=== PATIENT | male | born 1960 | race Caucasian/White ===

== ENCOUNTER → 2016-06-14 | Outpatient (CLI) | payer MEDICARE ==
[~2016-06-14] MED LIST: ASPI325T PO; LISI5TAB PO; ZEST20TA8 PO
[2016-06-14 18:33] LABS: ALBUMIN 3.9 GM/DL (3.2-5.2); ALBUMIN/GLOBULIN RATIO 1.08 (1.00-1.93); ALKALINE PHOSPHATASE 126 U/L (45-117); ALT/SGPT 58 U/L (12-78); ANION GAP 8 MEQ/L (8-16); AST/SGOT 57 U/L (15-37); BILIRUBIN,TOTAL 0.6 MG/DL (0.2-1.0); BLOOD UREA NITROGEN 9 MG/DL (7-18); CALCIUM LEVEL 8.7 MG/DL (8.5-10.1); CARBON DIOXIDE LEVEL 27 MEQ/L (21-32); CHLORIDE LEVEL 104 MEQ/L (98-107); CHOLESTEROL LEVEL 239 MG/DL (<200); CREATININE FOR GFR 1.07 MG/DL (0.70-1.30); GLOMERULAR FILTRATION RATE > 60.0 (>56); GLUCOSE, FASTING 90 MG/DL (70-105); POTASSIUM SERUM 4.3 MEQ/L (3.5-5.1); SODIUM LEVEL 139 MEQ/L (136-145); TOTAL PROTEIN 7.5 GM/DL (6.4-8.2); TRIGLYCERIDES LEVEL 81 MG/DL (<150)
== END ==
LOC: M LAB 16:02
PROVIDERS: ATTEND Nurse Practitioner
DX: Z12.5 Encounter for screening for malignant neoplasm of prostate (principal); I10 Essential (primary) hypertension
CPT/HCPCS: 36415; 80053; 80061; 84443; G0103

== ENCOUNTER 2018-01-01 03:19 | Inpatient (IN) | payer MEDICARE ==
[2018-01-01 04:16] LABS: BASO % 0.6 % (0.0-1.0); EOS % 0.6 % (0.0-3.0); HEMATOCRIT 43.9 % (42.0-52.0); HEMOGLOBIN 15.2 g/dl (13.5-17.5); IMMATURE GRANULOCYTE % 0.2 % (0-3.0); LYMPH # 1.8 10^3/uL (1.5-4.5); MEAN CORPUSCULAR HEMOGLOBIN 35.5 pg (27.0-33.0); MEAN CORPUSCULAR HGB CONC 34.6 g/dl (32.0-36.5); MEAN CORPUSCULAR VOLUME 102.6 fl (80.0-96.0); MONO # 0.6 10^3/uL (0.0-0.8); MONO % 11.2 % (0.0-5.0); NEUTROPHILS # 2.7 10^3/uL (1.8-7.7); NEUTROPHILS % 52.4 % (36.0-66.0); PLATELET COUNT, AUTOMATED 218 10^3/uL (150-450); RED BLOOD COUNT 4.28 10^6/uL (4.30-6.10); RED CELL DISTRIBUTION WIDTH 13.4 % (11.5-14.5); WHITE BLOOD COUNT 5.2 10^3/uL (4.0-10.0)
[2018-01-01 04:21] LABS: ABG BASE EXCESS -0.6 (-2.0-2.0); ABG HCO3 22.3 MEQ/L (22.0-26.0); ABG O2 SATURATION 93.9 % (95.0-99.0); ABG PARTIAL PRESSURE CO2 32.4 mmHg (35.0-45.0); ABG PARTIAL PRESSURE O2 65.3 mmHg (75.0-100.0); ABG STANDARD HCO3 23.9 MEQ/L (22.0-26.0); ABG TOTAL CO2 23.3 MEQ/L (22.0-29.0); ABG pH (ARTERIAL) 7.456 UNITS (7.350-7.450)
[2018-01-01] MEDS: METOPROLOL 5 MG/5 ML VIAL IV ×2 (04:21→16:11)
[2018-01-01] MEDS: FLECAINIDE 50MG TABLET PO (04:25)
[2018-01-01 04:31] LABS: ANION GAP 10 MEQ/L (8-16); BLOOD UREA NITROGEN 10 MG/DL (7-18); CALCIUM LEVEL 8.9 MG/DL (8.5-10.1); CARBON DIOXIDE LEVEL 22 MEQ/L (21-32); CHLORIDE LEVEL 109 MEQ/L (98-107); CPK CREATINE PHOSPHOKINASE 162 U/L (39-308); CREATININE FOR GFR 1.19 MG/DL (0.70-1.30); ETHYL ALCOHOL (ETHANOL) 0.004 % (0.000-0.010); GLOMERULAR FILTRATION RATE > 60.0 (>56); GLUCOSE, FASTING 117 MG/DL (70-100); MB/CK RELATIVE INDEX 2.16 (< OR =4); NT-PRO BNP 8156 PG/ML (<125); POTASSIUM SERUM 4.4 MEQ/L (3.5-5.1); SODIUM LEVEL 141 MEQ/L (136-145); TROPONIN I 0.03 NG/ML (< 0.10)
[2018-01-01] MEDS: hydrALAZINE INJ 20 MG/ML VIAL IV (04:51)
[2018-01-01] MEDS: FUROSEMIDE 100 MG/10 ML VIAL (J1940) IV (04:52)
[2018-01-01] MEDS: PHENobarbital INJ 65 MG/ML VIAL (J2560) IV ×2 (05:21→05:28)
[2018-01-01] MEDS ORDERED: BISACODYL 5 MG TAB PO (05:30)
[2018-01-01] MEDS ORDERED: LORazepam 2 MG TAB PO (05:30)
[2018-01-01] MEDS ORDERED: BISACODYL 10 MG SUPP PR (05:30)
[2018-01-01] MEDS ORDERED: ONDANSETRON 4MG/2ML VIAL (J2405) IV (05:30)
[2018-01-01] MEDS ORDERED: IPRATROPIUM 0.5MG/ALBUTEROL 2.5MG INH SOL UD 3ML (DUONEB)(J7620) NEB (05:45)
[2018-01-01 05:50] LABS: AMPHETAMINES LEVEL URINE NEGATIVE (NEGATIVE); BARBITURATES URINE NEGATIVE (NEGATIVE); BENZODIAZEPINES URINE NEGATIVE (NEGATIVE); CANNABINOIDS URINE NEGATIVE (NEGATIVE); COCAINE METABOLITE URINE NEGATIVE (NEGATIVE); METHADONE URINE NEGATIVE (NEGATIVE); OPIATES URINE NEGATIVE (NEGATIVE); PHENCYCLIDINE URINE NEGATIVE (NEGATIVE)
[2018-01-01] MEDS: HEPARIN SOD (PORCINE) 5000 UNITS/ML VIAL SC ×3 (06:00→21:01)
[2018-01-01 06:13] LABS: FREE THYROXINE INDEX 3.5 % (1.4-3.8); MAGNESIUM LEVEL 1.8 MG/DL (1.8-2.4); T UPTAKE 35 % (33-40); THYROXINE (T4) 9.9 UG/DL (4.5-12.0)
[2018-01-01] MEDS ORDERED: ISOVUE-370 76% 100ML VIAL (Q9967) As Ordered (06:26)
[2018-01-01] MEDS: FUROSEMIDE 40 MG/4 ML VIAL (J1940) IV ×6 (08:00→23:08)
[2018-01-01 08:33] LABS: INR 1.04; PROTHROMBIN TIME 13.7 SECONDS (12.1-14.4)
[2018-01-01 08:58] LABS: CPK CREATINE PHOSPHOKINASE 129 U/L (39-308); MB/CK RELATIVE INDEX 2.09 (< OR =4); TROPONIN I 0.02 NG/ML (< 0.10)
[2018-01-01] MEDS ORDERED: LORazepam 1 MG TAB PO (09:11)
[2018-01-01 09:31] LABS: ALBUMIN 3.9 GM/DL (3.2-5.2); ALBUMIN/GLOBULIN RATIO 1.26 (1.00-1.93); ALKALINE PHOSPHATASE 112 U/L (45-117); ALT/SGPT 50 U/L (12-78); AST/SGOT 64 U/L (7-37); BILIRUBIN,DIRECT 0.3 MG/DL (0.0-0.2); BILIRUBIN,TOTAL 0.9 MG/DL (0.2-1.0)
[2018-01-01 09:32] LABS: FOLATE 6.3 NG/ML (>5.4); VITAMIN B12 LEVEL 244 PG/ML (247-911)
[2018-01-01] MEDS: THIAMINE 100 MG TAB PO ×2 (10:28→20:58)
[2018-01-01] MEDS: FOLIC ACID 1 MG TAB PO (10:28)
[2018-01-01] MEDS: LORazepam 1 MG TAB PO (10:29)
[2018-01-01] MEDS: MULTIVITAMINS/MINERALS THERAP 1 TAB PO (10:29)
[2018-01-01] MEDS: METOPROLOL TART 25 MG TABLET PO ×3 (10:29→20:58)
[2018-01-01 13:56] LABS: CPK CREATINE PHOSPHOKINASE 99 U/L (39-308); MB/CK RELATIVE INDEX 2.32 (< OR =4); TROPONIN I 0.02 NG/ML (< 0.10)
[2018-01-01] MEDS: CYANOCOBALAMIN 500 MCG TAB PO (16:10)
[2018-01-01] MEDS: ASPIRIN 81 MG ENTERIC TAB PO (16:10)
[2018-01-01] MEDS: LORazepam 2 MG TAB PO ×2 (17:54→23:09)
[2018-01-02] MEDS: FUROSEMIDE 40 MG/4 ML VIAL (J1940) IV ×2 (04:56→08:00)
[2018-01-02] MEDS: LORazepam 2 MG TAB PO ×2 (05:00→12:46)
[2018-01-02] MEDS: HEPARIN SOD (PORCINE) 5000 UNITS/ML VIAL SC ×3 (05:00→21:03)
[2018-01-02 06:08] LABS: HEMATOCRIT 44.5 % (42.0-52.0); HEMOGLOBIN 15.2 g/dl (13.5-17.5); MEAN CORPUSCULAR HEMOGLOBIN 35.4 pg (27.0-33.0); MEAN CORPUSCULAR HGB CONC 34.2 g/dl (32.0-36.5); MEAN CORPUSCULAR VOLUME 103.7 fl (80.0-96.0); PLATELET COUNT, AUTOMATED 177 10^3/uL (150-450); RED BLOOD COUNT 4.29 10^6/uL (4.30-6.10); RED CELL DISTRIBUTION WIDTH 13.3 % (11.5-14.5); WHITE BLOOD COUNT 5.7 10^3/uL (4.0-10.0)
[2018-01-02 06:37] LABS: ANION GAP 8 MEQ/L (8-16); BLOOD UREA NITROGEN 20 MG/DL (7-18); CALCIUM LEVEL 8.8 MG/DL (8.5-10.1); CARBON DIOXIDE LEVEL 30 MEQ/L (21-32); CHLORIDE LEVEL 101 MEQ/L (98-107); CREATININE FOR GFR 1.38 MG/DL (0.70-1.30); GLOMERULAR FILTRATION RATE 56.7 (>56); GLUCOSE, FASTING 90 MG/DL (70-100); MAGNESIUM LEVEL 1.8 MG/DL (1.8-2.4); POTASSIUM SERUM 3.6 MEQ/L (3.5-5.1); SODIUM LEVEL 139 MEQ/L (136-145)
[2018-01-02] MEDS: ASPIRIN 81 MG ENTERIC TAB PO (09:36)
[2018-01-02] MEDS: MULTIVITAMINS/MINERALS THERAP 1 TAB PO (09:36)
[2018-01-02] MEDS: THIAMINE 100 MG TAB PO ×2 (09:36→21:02)
[2018-01-02] MEDS: CYANOCOBALAMIN 500 MCG TAB PO (09:36)
[2018-01-02] MEDS: FOLIC ACID 1 MG TAB PO (09:36)
[2018-01-02] MEDS: METOPROLOL TART 25 MG TABLET PO (09:37)
[2018-01-02] MEDS: METOPROLOL TART 50 MG TAB PO ×2 (13:00→17:34)
[2018-01-02] MEDS ORDERED: OXAZEPAM 10 MG CAP PO (14:30)
[2018-01-03] MEDS: METOPROLOL TART 25 MG TABLET PO ×4 (00:08→18:28)
[2018-01-03 05:28] LABS: HEMATOCRIT 45.2 % (42.0-52.0); HEMOGLOBIN 15.5 g/dl (13.5-17.5); MEAN CORPUSCULAR HEMOGLOBIN 34.5 pg (27.0-33.0); MEAN CORPUSCULAR HGB CONC 34.3 g/dl (32.0-36.5); MEAN CORPUSCULAR VOLUME 100.7 fl (80.0-96.0); PLATELET COUNT, AUTOMATED 197 10^3/uL (150-450); RED BLOOD COUNT 4.49 10^6/uL (4.30-6.10); RED CELL DISTRIBUTION WIDTH 12.7 % (11.5-14.5); WHITE BLOOD COUNT 5.9 10^3/uL (4.0-10.0)
[2018-01-03 05:59] LABS: ALBUMIN/GLOBULIN RATIO 0.88 (1.00-1.93); ALKALINE PHOSPHATASE 94 U/L (45-117); ALT/SGPT 45 U/L (12-78); ANION GAP 8 MEQ/L (8-16); AST/SGOT 42 U/L (7-37); BLOOD UREA NITROGEN 22 MG/DL (7-18); CALCIUM LEVEL 8.6 MG/DL (8.5-10.1); CARBON DIOXIDE LEVEL 27 MEQ/L (21-32); CHLORIDE LEVEL 102 MEQ/L (98-107); CREATININE FOR GFR 1.34 MG/DL (0.70-1.30); GLOMERULAR FILTRATION RATE 58.7 (>56); GLUCOSE, FASTING 101 MG/DL (70-100); POTASSIUM SERUM 3.8 MEQ/L (3.5-5.1); SODIUM LEVEL 137 MEQ/L (136-145); TOTAL PROTEIN 6.4 GM/DL (6.4-8.2)
[2018-01-03] MEDS: HEPARIN SOD (PORCINE) 5000 UNITS/ML VIAL SC ×2 (06:47→15:34)
[2018-01-03] MEDS: MULTIVITAMINS/MINERALS THERAP 1 TAB PO (09:57)
[2018-01-03] MEDS: ASPIRIN 81 MG ENTERIC TAB PO (09:57)
[2018-01-03] MEDS: FOLIC ACID 1 MG TAB PO (09:57)
[2018-01-03] MEDS: CYANOCOBALAMIN 1,000 MCG/ML VIAL (J3420) IM (09:59)
[2018-01-03] MEDS: THIAMINE 100 MG TAB PO ×2 (09:59→21:58)
[2018-01-03] MEDS: CYANOCOBALAMIN 500 MCG TAB PO (09:59)
[2018-01-03] MEDS: LISINOPRIL 5 MG TAB PO (09:59)
[2018-01-03 14:20] LABS: HOMOCYST(E)INE SERUM 90.1 umol/L (0.0-15.0)
[2018-01-03 14:20] LABS: Methylmalonic Acid 365 nmol/L (0-378)
[2018-01-03] MEDS ORDERED: DIGOXIN INJ 0.5 MG/2 ML AMP (J1160) IV ×2 (21:15→22:15)
[2018-01-03] MEDS: LORazepam 0.5 MG TAB PO (21:58)
[2018-01-03] MEDS: APIXABAN 5 MG TAB (ELIQUIS) PO (21:58)
[2018-01-03] MEDS: ENTRESTO 24-26MG TABLET (SACUBITRIL/VALSARTAN) PO (21:58)
[2018-01-04 00:06] LABS: ANTI-PARIETAL CELL ANTIBODY 8.8 Units (0.0-20.0)
[2018-01-04] MEDS: METOPROLOL TART 25 MG TABLET PO ×5 (00:48→23:40)
[2018-01-04 04:58] LABS: HEMATOCRIT 45.8 % (42.0-52.0); HEMOGLOBIN 15.8 g/dl (13.5-17.5); MEAN CORPUSCULAR HEMOGLOBIN 34.9 pg (27.0-33.0); MEAN CORPUSCULAR HGB CONC 34.5 g/dl (32.0-36.5); MEAN CORPUSCULAR VOLUME 101.1 fl (80.0-96.0); PLATELET COUNT, AUTOMATED 197 10^3/uL (150-450); RED BLOOD COUNT 4.53 10^6/uL (4.30-6.10); RED CELL DISTRIBUTION WIDTH 12.9 % (11.5-14.5); WHITE BLOOD COUNT 6.2 10^3/uL (4.0-10.0)
[2018-01-04 05:23] LABS: ALBUMIN 2.9 GM/DL (3.2-5.2); ALBUMIN/GLOBULIN RATIO 0.81 (1.00-1.93); ALKALINE PHOSPHATASE 87 U/L (45-117); ALT/SGPT 53 U/L (12-78); ANION GAP 8 MEQ/L (8-16); AST/SGOT 41 U/L (7-37); BILIRUBIN,TOTAL 0.6 MG/DL (0.2-1.0); BLOOD UREA NITROGEN 24 MG/DL (7-18); CARBON DIOXIDE LEVEL 27 MEQ/L (21-32); CHLORIDE LEVEL 104 MEQ/L (98-107); GLOMERULAR FILTRATION RATE > 60.0 (>56); GLUCOSE, FASTING 103 MG/DL (70-100); POTASSIUM SERUM 3.5 MEQ/L (3.5-5.1); SODIUM LEVEL 139 MEQ/L (136-145); TOTAL PROTEIN 6.5 GM/DL (6.4-8.2)
[2018-01-04] MEDS: CYANOCOBALAMIN 500 MCG TAB PO (08:38)
[2018-01-04] MEDS: MULTIVITAMINS/MINERALS THERAP 1 TAB PO (08:38)
[2018-01-04] MEDS: APIXABAN 5 MG TAB (ELIQUIS) PO ×2 (08:38→20:20)
[2018-01-04] MEDS: ASPIRIN 81 MG ENTERIC TAB PO (08:38)
[2018-01-04] MEDS: NALTREXONE 50 MG TAB PO (08:38)
[2018-01-04] MEDS: FOLIC ACID 1 MG TAB PO (08:39)
[2018-01-04] MEDS: LORazepam 0.5 MG TAB PO ×3 (08:39→20:20)
[2018-01-04] MEDS: ENTRESTO 24-26MG TABLET (SACUBITRIL/VALSARTAN) PO ×2 (08:39→20:20)
[2018-01-05 04:41] LABS: HEMATOCRIT 46.1 % (42.0-52.0); HEMOGLOBIN 16.1 g/dl (13.5-17.5); MEAN CORPUSCULAR HGB CONC 34.9 g/dl (32.0-36.5); MEAN CORPUSCULAR VOLUME 100.2 fl (80.0-96.0); PLATELET COUNT, AUTOMATED 186 10^3/uL (150-450); RED CELL DISTRIBUTION WIDTH 12.6 % (11.5-14.5); WHITE BLOOD COUNT 6.5 10^3/uL (4.0-10.0)
[2018-01-05 05:03] LABS: ALBUMIN 2.9 GM/DL (3.2-5.2); ALBUMIN/GLOBULIN RATIO 0.85 (1.00-1.93); ALKALINE PHOSPHATASE 81 U/L (45-117); ALT/SGPT 58 U/L (12-78); ANION GAP 7 MEQ/L (8-16); AST/SGOT 39 U/L (7-37); BILIRUBIN,TOTAL 0.6 MG/DL (0.2-1.0); BLOOD UREA NITROGEN 22 MG/DL (7-18); CALCIUM LEVEL 8.6 MG/DL (8.5-10.1); CARBON DIOXIDE LEVEL 26 MEQ/L (21-32); CHLORIDE LEVEL 106 MEQ/L (98-107); CREATININE FOR GFR 1.19 MG/DL (0.70-1.30); GLOMERULAR FILTRATION RATE > 60.0 (>56); GLUCOSE, FASTING 111 MG/DL (70-100); POTASSIUM SERUM 3.7 MEQ/L (3.5-5.1); SODIUM LEVEL 139 MEQ/L (136-145); TOTAL PROTEIN 6.3 GM/DL (6.4-8.2)
[2018-01-05] MEDS: METOPROLOL TART 25 MG TABLET PO ×2 (05:03→12:43)
[2018-01-05] MEDS: MULTIVITAMINS/MINERALS THERAP 1 TAB PO (08:25)
[2018-01-05] MEDS: NALTREXONE 50 MG TAB PO (08:26)
[2018-01-05] MEDS: LORazepam 0.5 MG TAB PO (08:26)
[2018-01-05] MEDS: ASPIRIN 81 MG ENTERIC TAB PO (08:26)
[2018-01-05] MEDS: APIXABAN 5 MG TAB (ELIQUIS) PO (08:26)
[2018-01-05] MEDS: ENTRESTO 24-26MG TABLET (SACUBITRIL/VALSARTAN) PO (08:26)
[2018-01-05] MEDS: CYANOCOBALAMIN 500 MCG TAB PO (08:26)
[2018-01-05] MEDS: FOLIC ACID 1 MG TAB PO (08:26)
== END 2018-01-05 16:32 | disposition home or self-care (01) | DRG 291 ==
LOC: M ED 03:19 → M ED INP 06:10 → M ICU 08:57
DX: I11.0 Hypertensive heart disease with heart failure (principal); I50.21 Acute systolic (congestive) heart failure; F10.239 Alcohol dependence with withdrawal, unspecified; I48.91 Unspecified atrial fibrillation; I42.6 Alcoholic cardiomyopathy; Z79.82 Long term (current) use of aspirin; Z79.899 Other long term (current) drug therapy; Z91.14 Patient's other noncompliance with medication regimen; K57.30 Diverticulosis of large intestine without perforation or abscess without bleeding; K44.9 Diaphragmatic hernia without obstruction or gangrene; E53.8 Deficiency of other specified B group vitamins; R94.6 Abnormal results of thyroid function studies

== ENCOUNTER → 2018-01-11 | Outpatient (CLI) | payer MEDICARE ==
[2018-01-11 13:07] LABS: ANION GAP 6 MEQ/L (8-16); BLOOD UREA NITROGEN 16 MG/DL (7-18); CALCIUM LEVEL 9.5 MG/DL (8.5-10.1); CARBON DIOXIDE LEVEL 27 MEQ/L (21-32); CHLORIDE LEVEL 107 MEQ/L (98-107); CREATININE FOR GFR 1.24 MG/DL (0.70-1.30); GLOMERULAR FILTRATION RATE > 60.0 (>56); GLUCOSE, FASTING 91 MG/DL (70-100); POTASSIUM SERUM 4.9 MEQ/L (3.5-5.1); SODIUM LEVEL 140 MEQ/L (136-145)
== END ==
LOC: M LAB 11:59
DX: I50.22 Chronic systolic (congestive) heart failure (principal)
CPT/HCPCS: 80048

== ENCOUNTER → 2018-12-26 | Outpatient (CLI) | payer MEDICARE, MEDICAID ==
[~2018-12-26] MED LIST changes: +ASPI81TA26 PO; +ASPI81TAEC PO; +ATIV1TAB10 PO; +B-12100010 PO; +DIGO0.12 PO; +ELIQ5TAB PO; +ENTR1TAB PO; +FOLI1TAB11 PO; +FURO20TA2 PO; +LISI-538 PO; +LISI10TA4 PO; +METO1TAB32 PO; +METO1TAB33 PO; +METO1TAB7 PO; +METO1TAB87 PO; +NALT50TA4 PO; +OXAZ10CA3 PO; +THIA100T7 PO; +THIA100TA PO; +VITA500T17 PO; +VITMTA PO
[2018-12-26 08:45] LABS: BASO # 0.1 10^3/uL (0.0-0.2); BASO % 0.9 % (0.0-1.0); EOS # 0.1 10^3/uL (0.0-0.5); EOS % 1.8 % (0.0-3.0); HEMATOCRIT 42.9 % (42.0-52.0); HEMOGLOBIN 13.9 g/dl (13.5-17.5); LYMPH # 1.8 10^3/uL (1.5-5.0); LYMPH % 31.8 % (24.0-44.0); MEAN CORPUSCULAR HEMOGLOBIN 32.4 pg (27.0-33.0); MEAN CORPUSCULAR HGB CONC 32.4 g/dl (32.0-36.5); MONO # 0.8 10^3/uL (0.0-0.8); MONO % 14.7 % (0.0-5.0); NEUTROPHILS # 2.8 10^3/uL (1.5-8.5); NEUTROPHILS % 50.4 % (36.0-66.0); PLATELET COUNT, AUTOMATED 223 10^3/uL (150-450); RED BLOOD COUNT 4.29 10^6/uL (4.30-6.10); WHITE BLOOD COUNT 5.5 10^3/uL (4.0-10.0)
[2018-12-26 08:59] LABS: HEMATOCRIT 42.9 % (42.0-52.0)
[2018-12-26 09:23] LABS: ALBUMIN 3.4 GM/DL (3.2-5.2); BILIRUBIN,TOTAL 0.5 MG/DL (0.2-1.0); C REACTIVE PROTEIN QUANTITATIV 0.44 MG/DL (0.00-0.30); CALCIUM LEVEL 9.1 MG/DL (8.5-10.1); CHOLESTEROL RISK RATIO 4.217 (<5); CREATININE FOR GFR 1.32 MG/DL (0.70-1.30); FREE T4 1.1 NG/DL (0.76-1.46); GLOMERULAR FILTRATION RATE 59.5 (>56); POTASSIUM SERUM 4.2 MEQ/L (3.5-5.1); THYROID STIMULATING HORMONE 2.08 uIU/ML (0.358-3.740); TOTAL PROTEIN 6.8 GM/DL (6.4-8.2)
[2018-12-26 13:17] LABS: PTH INTACT 49.8 PG/ML (18.5-88.0)
== END ==
LOC: M LAB 08:01
PROVIDERS: ATTEND Family Medicine
DX: Z12.5 Encounter for screening for malignant neoplasm of prostate (principal); E53.9 Vitamin B deficiency, unspecified; E78.5 Hyperlipidemia, unspecified; N18.3 Chronic kidney disease, stage 3 (moderate)
CPT/HCPCS: 36415; 80053; 80061; 82306; 82550; 82607; 82747; 83735; 83970; 84439; 84443; 85025; 86140; G0103

== ENCOUNTER → 2019-02-27 | Outpatient (CLI) | payer MEDICARE, MEDICAID ==
[~2019-02-27] MED LIST changes: -DIGO0.12 PO; +DIGO0.123 PO
--- NOTE | 2019-02-27 08:59 | REP ---
Complete abdominal ultrasound: The studies performed for alcohol abuse. There is no cholelithiasis, gallbladder wall thickening or pericholecystic fluid. There is no intrahepatic or extrahepatic biliary duct dilatation. The common biliary duct measures 3.4 mm in diameter. The hepatic parenchyma is homogeneous and otherwise unremarkable. The spleen is normal size measuring 9.8 by of 4.1 x 10.2 cm, homogeneous and otherwise unremarkable. The pancreas is obscured by bowel gas. The right kidney is normal size measuring 2.2 x 6.4 x 6.4 cm. The left kidney is normal size measuring 11.1 x 5.4 x 4.5 cm. There is a right renal cyst measuring up to 1.5 cm. There is no solid right renal mass. There are no solid or cystic left renal masses. There is no calculus or hydronephrosis on the right on the left kidneys. There is no abdominal aortic aneurysm. The proximal abdominal aorta measures 1.8 cm, mid abdominal aorta to 0.1 cm and distal abdominal aorta 2.1 cm. There is no abdominal free fluid. Impression: There is a 1.5 cm left renal cyst. The pancreas is obscured by bowel gas. The hepatic parenchyma is homogeneous and otherwise unremarkable. There is no free fluid. Bilateral renal artery Doppler ultrasound for stage III chronic renal disease.: Renal Vascular Doppler Ultrasound: Right Kidney: Renal length 12.2 cm cm. Extraparenchymal renal artery. Peak renal artery flow velocity the 117.9 cm/ sec Peak aortic velocity: 100.6 cm/sec Renal/aortic ratio: 1.1 Intraparenchymal renal arteries. Resistive index: upper pole 0.55 mid pole 0.60 lower pole 0.69 Acceleration time: upper pole 0.030 mid pole 0.039 lower pole 0.031 Left kidney: Renal length 11.1 cm. Extraparenchymal renal artery: Peak renal artery flow velocity: 100.8 cm/sec. Peak aortic velocity: 100.6 cm/sec Renal/aortic ratio: 1.0 Intraparenchymal renal arteries: Resistive index: Upper pole 0.66 mid pole 0.67 lower pole 0.55 Acceleration time: Upper pole 0.030 mid pole 0028 lower pole 0.033 Impression: There is no ultrasound evidence of renal artery stenosis. Electronically Signed by Drake Lau MD 02/27/2019 08:50 A
== END ==
LOC: M RAD 07:29
PROVIDERS: ATTEND Family Medicine
DX: N18.3 Chronic kidney disease, stage 3 (moderate) (principal); F10.10 Alcohol abuse, uncomplicated; I10 Essential (primary) hypertension

== ENCOUNTER 2020-07-26 11:24 | Emergency (ER) | payer MEDICAID, MEDICARE ==
[~2020-07-26] VITALS: Ht 188 cm; Wt 102.3 kg
[~2020-07-26 11:24] MED LIST changes: +ASPI-569 PO; -ASPI81TAEC PO; -LISI-538 PO; +LISI10TA22 PO; -LISI10TA4 PO; +LISI20TA33 PO
[2020-07-26] MEDS ORDERED: AMLO2.5T3 (11:51)
--- NOTE | 2020-07-26 12:25 | REP ---
INDICATION: decreased rom COMPARISON: None. TECHNIQUE: Four views left ankle. FINDINGS: There is a nondisplaced fracture of the medial malleolus extending into the tibiotalar joint. The distal fibula demonstrates no evidence of fracture. There is mild medial soft tissue swelling. There is mild posterior calcaneal spurring. IMPRESSION: Nondisplaced fracture medial malleolus. <Electronically signed by Drake Capps > 07/26/20 [id number]
--- NOTE | 2020-07-26 14:53 | REP ---
INDICATION: trauma, mid foot pain. COMPARISON: None. TECHNIQUE: Four views of the left foot. FINDINGS: Four views of the left foot demonstrate an old healed fracture of the proximal phalanx of the 2nd toe. There is accessory ossicle formation adjacent to the lateral malleolus. Achilles and plantar calcaneal spurring is noted.. No fracture or subluxation is seen. No opaque foreign body noted. There is mild vascular calcification. IMPRESSION: No acute fracture seen. Heel spur. Old posttraumatic deformity of the 2nd proximal phalanx. Accessory ossicle at the lateral malleolus.. <Electronically signed by Aly Garcia > 07/26/20 [id number]
[2020-07-26] MEDS ORDERED: ACET1TAB16 PO (15:13)
[2020-07-26 16:07] VITALS: BP 156/94
== END 2020-07-26 16:12 | disposition home or self-care (01) ==
LOC: M ED 11:24
DX: S82.55XA Nondisplaced fracture of medial malleolus of left tibia, initial encounter for closed fracture (principal); W10.2XXA Fall (on)(from) incline, initial encounter; I11.0 Hypertensive heart disease with heart failure; F41.9 Anxiety disorder, unspecified; F32.9 Major depressive disorder, single episode, unspecified; Y92.62 Dock or shipyard as the place of occurrence of the external cause

== ENCOUNTER → 2020-08-12 | Outpatient (CLI) | payer MEDICARE, MEDICAID ==
[~2020-08-12] MED LIST changes: +ACET1TAB16 PO; +AMLO2.5T3
== END ==
LOC: M SOG 15:44
PROVIDERS: ATTEND Orthopaedic Surgery Sports Medicine
DX: S82.55XD Nondisplaced fracture of medial malleolus of left tibia, subsequent encounter for closed fracture with routine healing (principal); X58.XXXD Exposure to other specified factors, subsequent encounter

== ENCOUNTER → 2020-09-07 | Outpatient (CLI) | payer MEDICARE, MEDICAID | LOC: M SOG 14:33 | PROVIDERS: ATTEND Orthopaedic Surgery Sports Medicine | DX: S82.55XD Nondisplaced fracture of medial malleolus of left tibia, subsequent encounter for closed fracture with routine healing (principal); M19.072 Primary osteoarthritis, left ankle and foot ==

== ENCOUNTER 2022-08-30 08:16 | Emergency (ER) | payer MEDICARE, MEDICAID ==
[~2022-08-30] VITALS: Ht 188 cm; Wt 98.2 kg
[~2022-08-30 08:16] MED LIST changes: -ACET1TAB16 PO; +ACET300T48 PO
[2022-08-30] MEDS ORDERED: MECLIZINE 25 MG TABLET PO ONE (11:45)
[2022-08-30 12:40] LABS: VENOUS BASE EXCESS -0.6 (-2.0-2.0); VENOUS HCO3 26.3 MMOL/L (23.0-27.0); VENOUS O2 SATURATION 73.5 % (60.0-80.0); VENOUS PARTIAL PRESSURE CO2 52.6 mmHg (38.0-50.0); VENOUS PARTIAL PRESSURE O2 42.8 mmHg (30.0-50.0); VENOUS PH 7.317 UNITS (7.330-7.430); VENOUS STANDARD HCO3 23.4 MMOL/L; VENOUS TOTAL CO2 27.9 MMOL/L (24.0-28.0)
[2022-08-30 12:41] LABS: BASO % 0.4 % (0.0-1.0); EOS # 0.1 10^3/uL (0.0-0.5); EOS % 0.5 % (0.0-3.0); HEMOGLOBIN 12.7 g/dl (13.5-17.5); LYMPH # 1.6 10^3/uL (1.5-5.0); MEAN CORPUSCULAR HEMOGLOBIN 40.8 pg (27.0-33.0); MEAN CORPUSCULAR HGB CONC 34.3 g/dl (32.0-36.5); MONO # 0.9 10^3/uL (0.0-0.8); MONO % 8.9 % (2.0-8.0); NEUTROPHILS # 7.2 10^3/uL (1.5-8.5); NEUTROPHILS % 73.6 % (36.0-66.0); PLATELET COUNT, AUTOMATED 263 10^3/uL (150-450); RED BLOOD COUNT 3.11 10^6/uL (4.30-6.10); WHITE BLOOD COUNT 9.7 10^3/uL (4.0-10.0)
[2022-08-30 13:08] LABS: DIGOXIN LEVEL 1.2 NG/ML (0.8-2.0)
[2022-08-30 13:09] LABS: ACETONE/KETONE 0.45 MMOL/L (0.02-0.27); ALBUMIN 2.8 G/DL (3.2-5.2); ALKALINE PHOSPHATASE 151 U/L (46-116); ALT/SGPT 35 U/L (7.0-40); AST/SGOT 98 U/L (<34); BILIRUBIN,TOTAL 1.2 MG/DL (0.3-1.2); BLOOD UREA NITROGEN 21 MG/DL (9-23); CALCIUM LEVEL 9.1 MG/DL (8.3-10.6); CARBON DIOXIDE LEVEL 26 MMOL/L (20-31); CHLORIDE LEVEL 102 MMOL/L (98-107); CK-MB VALUE MASS < 1.0 NG/ML (<3.6); CREATININE FOR GFR 1.46 MG/DL (0.70-1.30); GLOMERULAR FILTRATION RATE 52.3 (>49); GLUCOSE, FASTING 119 MG/DL (74-106); MAGNESIUM LEVEL 1.3 MG/DL (1.8-2.4); POTASSIUM SERUM 4.1 MMOL/L (3.5-5.1); SODIUM LEVEL 137 MMOL/L (136-145); TOTAL PROTEIN 6.3 G/DL (5.7-8.2)
[2022-08-30 13:11] LABS: CPK CREATINE PHOSPHOKINASE 61 U/L (46-171); MB/CK RELATIVE INDEX 1.63 (< OR =4)
[2022-08-30 13:14] LABS: PLATELET ESTIMATE NORMAL (NORMAL)
[2022-08-30] MEDS ORDERED: ISOVUE-370 76% 100ML VIAL As Ordered ONE (13:18)
[2022-08-30 14:54] LABS: IRON (FE) 102 UG/DL (65-175); TOTAL IRON BINDING CAPACITY 249 UG/DL (250-425)
[2022-08-30 14:56] LABS: FERRITIN 475.1 NG/ML (10.5-307.3)
[2022-08-30] MEDS ORDERED: MAGN500T6 PO (15:02)
[2022-08-30] MEDS ORDERED: MECL1TAB31 PO (15:02)
[2022-08-30 15:14] VITALS: BP 117/68; TEMP 98.1; O2SAT 96
== END 2022-08-30 15:20 | disposition home or self-care (01) ==
LOC: M ED 08:16
DX: R42 Dizziness and giddiness (principal); E61.2 Magnesium deficiency; R20.2 Paresthesia of skin; I48.91 Unspecified atrial fibrillation; I10 Essential (primary) hypertension; Z86.79 Personal history of other diseases of the circulatory system; Z79.01 Long term (current) use of anticoagulants; Z79.810 Long term (current) use of selective estrogen receptor modulators (SERMs); Z79.899 Other long term (current) drug therapy
CPT/HCPCS: 36415; 70450; 70496; 70498; 71046; 80053; 80162; 82010; 82550; 82553; 82728; 82803; 83036; 83550; 83735; 83880; 84484; 85025; 93005; 99284; Q9967